=== PATIENT | male | born 1955 | race Caucasian/White ===

== ENCOUNTER → 2016-04-24 | Outpatient (CLI) | payer OTHER ==
[~2016-04-24] MED LIST: ABILIFY10 MG; ADVAIR 250/5028 PUFF IN; ALBUTEROL-200 PUFFS/ IH; ASPIRIN CHILDRE81 M1 PO; BUPROPION HCL100 MG PO; CLARITIN 10MG T10 MG PO; DAILY VITE1 TA2 PO; EFFEXOR XR150 MG PO; FISH OIL CONC1000 MG PO; GLUCOSAMINE500 MG PO; KEFLEX 500MG.500 MG PO; PERCOCET 5/3251 EACH PO; PHARMASSURE RE250 MG PO; RAMIPRIL5 MG PO; VITAMIN C500 M1 PO
--- NOTE | 2016-04-24 13:57 | CARDIOVASCULAR REPORT ---
"Cerebrovascular Exam Indications: 780.4 Dizziness and giddiness. IMPRESSIONS 1. The bilateral vertebral arteries are patent with normal antegrade flow. 2. Study suggests less than 20% stenosis involving the right internal carotid artery and the left internal carotid artery. Carotid duplex study. Complete study and Doppler flow study including spectral analysis, color and bone scale imaging. Height: Height: 185.4cm. Height: 73in. Weight: Weight: 81.6kg. Weight: 179.6lb. Body mass index: BMI: 23.7kg/m^2. Body surface area: BSA: 2.05m^2. Location: Vascular laboratory. Patient status: Outpatient. Tables: Arterial flow: + +--------+--------+ |Location |V sys |V ed | + +--------+--------+ |Right CCA - proximal|110cm/s |28.1cm/s| + +--------+--------+ |Right CCA - distal |97.6cm/s|22.6cm/s| + +--------+--------+ |Right ECA |97.6cm/s|--------| + +--------+--------+ |Right ICA - proximal|76.6cm/s|19.9cm/s| + +--------+--------+ |Right ICA - mid |81.1cm/s|30.3cm/s| + +--------+--------+ |Right ICA - distal |81.6cm/s|34.7cm/s| + +--------+--------+ |Right vertebral |63.4cm/s|--------| + +--------+--------+ |Left CCA - proximal |167cm/s |38.5cm/s| + +--------+--------+ |Left CCA - distal |102cm/s |23.6cm/s| + +--------+--------+ |Left ECA |81.1cm/s|--------| + +--------+--------+ |Left ICA - proximal |89.9cm/s|33.3cm/s| + +--------+--------+ |Left ICA - mid |102cm/s |36.5cm/s| + +--------+--------+ |Left ICA - distal |95.7cm/s|36.4cm/s| + +--------+--------+ |Left vertebral |46.8cm/s|--------| + +--------+--------+ Velocity ratios: + + + + + + | |Right, V sys|Right, V ed|Left, V sys|Left, V ed| + + + + + + |Max ICA/dist CCA|0.84 |1.54 |1 |1.55 | + + + + + + (Report amended ) Electronically signed by: Vishal Dickey [id number]"
== END ==
LOC: RT 13:00
DX: I10 Essential (primary) hypertension (principal); R42 Dizziness and giddiness; H33.21 Serous retinal detachment, right eye; H93.13 Tinnitus, bilateral; H90.0 Conductive hearing loss, bilateral; H54.41 Blindness, right eye, normal vision left eye; G47.10 Hypersomnia, unspecified

== ENCOUNTER → 2016-05-30 | Outpatient (CLI) | payer OTHER ==
[2016-05-30 16:11] LABS: HEMOGLOBIN 15.9 g/dL (14.1-18.0); LYMPH % 35.1 % (10-50)
[2016-05-30 17:46] LABS: BUN 18 mg/dL (7-18); GFR (ESTIMATED) 76 ML/MIN (>60)
[2016-06-01 08:40] LABS: Vitamin B12 575 pg/mL (211-946); Vitamin D, 25-Hydroxy 50.6 ng/mL (30.0-100.0)
[2016-06-02 03:35] LABS: Free Testosterone(Direct) 5.4 pg/mL (6.6-18.1)
[2016-06-04 04:38] LABS: Testosterone, Total, LC/MS 647.5 ng/dL (348.0-1197.0)
== END ==
LOC: LAB 15:55
PROVIDERS: Physician Assistant
DX: R53.83 Other fatigue (principal)

== ENCOUNTER 2017-01-22 23:27 | Emergency (ER) | payer OTHER ==
[~2017-01-22] VITALS: Ht 185.4 cm; Wt 81.6 kg
--- OUTSIDE RECORDS SUMMARY | 2017-01-22 23:37 | External Medical Summary Rpt | CCD ---
Author Author [employer] Organization [employer] Address Unknown Phone Unavailable Purpose Continuity of Care Document - through 2016
--- OUTSIDE RECORDS SUMMARY | 2017-01-22 23:37 | External Medical Summary Rpt ---
Author Author NANCY Mitchell, [employer] Organization [employer] Address Unknown Phone Unavailable
--- OUTSIDE RECORDS SUMMARY | 2017-01-22 23:37 | External Medical Summary Rpt | CCD ---
Author Author HOWIE Address Unknown Phone [email or web address] Purpose Continuity of Care Document - through 2016
--- OUTSIDE RECORDS SUMMARY | 2017-01-22 23:37 | External Medical Summary Rpt | CCD ---
Author Author HOWIE Address Unknown Phone [email or web address] Purpose Continuity of Care Document - through 2016
--- OUTSIDE RECORDS SUMMARY | 2017-01-22 23:37 | External Medical Summary Rpt | CCD ---
Demographics Preferred Language Chadian Marital Status Unknown Pentecostal Affiliation Unknown Race Unknown Ethnic Group Unknown Author Author , HOWIE CRUZ Address Unknown Phone Immunization No patient found.
--- OUTSIDE RECORDS SUMMARY | 2017-01-22 23:37 | External Medical Summary Rpt | CCD ---
Demographics Preferred Language Central African Marital Status Unknown Gnosticist Affiliation Unknown Race Unknown Ethnic Group Unknown Author Author , HOWIE CRUZ Address Unknown Phone Immunization No patient found.
[2017-01-22 23:52] LABS: HEMOGLOBIN 15.1 g/dL (14.1-18.0); LYMPH # 2.8 K/mm3 (0.7-4.5); LYMPH % 41.5 % (10-50)
--- NOTE | 2017-01-23 00:02 | Emergency Room Report ---
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 N Clinical Suspician of Infection? N Mental Status: 1 - Regular (Normal Baseline) Sepsis Risk:Low Sepsis Risk Have you (or family members/close friends) recently traveled outside the [place]? N If Yes, where/when: Have you had exposure to infectious disease within the past month? N TB? Other? 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 at 2229- no chest pain or visual sx and no speech sx - no motor or sensory loss- pt has amnestic response to what happened and current sx Cardiac Chest Pain Chest pain indicative of cardiac No Timing/Duration this evening Severity moderate ALLERGIES Coded Allergies: No Known Allergies (11/27/15) Home Medications Reported Medications Loratadine (Claritin 10MG) 10 MG PO DAILY Ascorbic Acid (Vitamin C) 500 MG PO DAILY FLUTICASONE/SALMETEROL (Advair 250-50 Diskus) 1 PUFF IN BID Ramipril (Ramipril 5MG) 5 MG PO DAILY VENLAFAXINE HCL (Effexor XR 150MG) 150 MG PO DAILY Albuterol (Albuterol-Hfa Inhaler) 1-2 PUFFS IH NEEDED #1 INH Aspirin 81 MG PO DAILY Fish Oil (Fish Oil Concentrate) 1,000 MG PO DAILY Glucosamine Sulfate (Glucosamine) 2 TAB PO DAILY Multivitamin (Daily Naomi) 1 TAB PO DAILY Resveratrol (Pharmassure Resveratrol) 1 TAB PO DAILY History Medical History General CAD? No Angina: No KS: No Hypertension? Yes Hyperlipidemia? No CHF? No DVT? No PE? No COPD? No Asthma? No Anemia? No GERD? No Gastric ulcers? No GI Bleed? No Hernia? No Thyroid Problems? No Hypothyroidism? No CVA? No Seizures? No Diabetes? No Renal Insuffiency? No End Stage Renal Disease? No UTI? No Stones? No BPH? No GB Disease: No Nephritic Syndrome? No Asplenia? No Hepatitis? No Sickle Cell Disease? No Arthritis? No Migraines? No Cataracts? No Glaucoma? No MRSA? No HIV? No TB? No Anxiety? No Depression? No Cancer? Yes Site: SKIN More? No Immunization Hx DT/Tetanus 1-4 YRS Flu THISFLUSEA Pneumonia Received In Past Surgical Hx Previous Surgery?Y L ANKLE L ELBOW LTHUMB JAW NASAL BACK 4 LEVEL LUMBAR SX Family History Family Hx Diabetes No CAD Yes Hypertension Yes Hyperlipidemia Yes Cancer Yes TB No Social History Smoking Hx Smoker: Never Smoker Tobacco: No Alcohol Alcohol: No Drugs none Review of Systems All Other Systems Reviewed and Negative Constitutional denies fever Eyes denies drainage ENT denies: ear discharge, epistaxis, throat pain. Respiratory denies cough, denies shortness of breath, denies wheezing Cardiovascular denies chest pain, denies syncope Gastrointestinal denies abdominal pain, denies diarrhea, denies vomiting Genitourinary denies: dysuria, frequency, hesitancy, hematuria. Musculoskeletal denies back pain, denies joint pain, denies joint swelling, denies neck pain Skin denies rash Psychiatric/Neurological see HPI, denies headache, denies seizure, other Physical Exam Vital Signs Vital Signs Date Time Temp Pulse Resp B/P Pulse O2 O2 Flow FiO2 Ox Delivery Rate 01/22 2330 98.0 103 18 180/77 90 - WBC >12,000 or <4,000 or 10% bands? 2 or more SIRS Criteria Met? B/P:180/77 MAP:111 Creatinine >2.0? UA output<0.5ml/kg/hr for 2 hrs? Platelet count >100,000? Lactate >2.0mmol/1? INR >1.2 or PTT > than 60 sec? Evidence of Organ Dysfunction? Provider documented clinical suspician of infection? N Sepsis Criteria Count: 1 Sepsis Risk: Low Sepsis Risk General Appearance no apparent distress Eye Exam - bilateral eye PERRL, bilateral eye EOMI Ear, Nose, Throat normal ENT inspection Neck supple, no bruit Respiratory Status No: respiratory distress. Lung Sounds bilateral: lungs clear. 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 Yes NIH STROKE SCORE NIH STROKE SCORE Response Value 1a.Level of Consciousness ALERT 0 1b.LOC Questions ANSWERS BOTH CORRECTLY 0 1c.LOC Commands OBEYS BOTH CORRECTLY 0 2 .Best Gaze NORMAL 0 3 .Visual NO VISUAL LOSS 0 4 .Facial Palsy NORMAL 0 5a.Motor Arm Left NO DRIFT 0 5b.Motor Arm Right NO DRIFT 0 6a.Motor Leg Left NO DRIFT 0 6b.Motor Leg Right NO DRIFT 0 7 .Limb Ataxia ABSENT 0 8 .Sensory NORMAL 0 9 .Best Language NO APHASIA 0 10.Dysarthria NORMAL ARTICULATION 0 ED.NIH11 NO NEGLECT 0 Total 0 Medical Decision Making LABS/Meds/Orders Pt receiving controlled substance in ED? No Results/Orders Laboratory Tests 01/22/176: Sodium 137, Potassium 3.7, Chloride 102, Carbon Dioxide 30, BUN 14, Creatinine 1.1, Estimated Creat Clear 80, Estimated GFR (MDRD) 68, Glucose 96, Calcium 9.4, WBC 6.7, RBC 5.08, Hgb 15.1, Hct 45.1, MCV 88.7, RDW 13.0, Plt Count 185, MPV 8.6, Gran % 45.8, Gran # 3.1, Lymphocytes % 41.5, Monocytes % 8.2, Eosinophils % 3.8, Basophils % 0.8, Lymphocytes # 2.8, Monocytes # 0.6, Eosinophils # 0.3, Basophils # 0.1, PUBS MCHC 33.6, MCH 29.8 Current Medication Orders Sig/Kayce Start time Last Medication Dose Route Stop Time Status Admin Sodium Chloride 10 ML PRN PRN 01/22 2330 AC IV 01/23 2329 Orders Procedure Date/time Status DIET-NOTHING BY MOUTH 01/23 B Active ELECTROCARDIOGRAM REQUEST 01/[address] HEAD W/O CONTRAST 01/22 2333 Active FSBS REQUEST BY [facility] 01/[address] HEAD REQ 01/22 2330 Complete IV SALINE LOCK 01/22 2330 Active CBC WITH AUTO DIFF 01/22 2330 Complete BASIC METABOLIC PROFILE 01/22 2330 Complete 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 ST/Twave chgs XRAY/CT/US XRAY/CT/US CT head CT interpretation by discussed w/radiologist Time results known: 12 CT Results normal/NAD Departure Departure Time of Disposition 5 Disposition DC/XFER from ER to [facility] Clinical Impression Primary Impression: TGA (transient global amnesia) Condition STABLE Additional Instructions discussed with dr boland at stroke team Discharge Counseling Counseled pt/family regarding diagnosis, test results ED Critical Care Critical Care Yes Time spent 30-74 min Vital system(s) involved: emily I was present at bedside for Coordinating pt's care, Reviewing lab results, Reviewing old records, Discussing pt condition, Examining radiographs If Critical Care minutes are documented, the time involved in the performance of seperately reportable procedures was not counted toward critical care time documented. I directly delivered medical care to this critically ill and/or injured patient. Timely evaluation and treatment was necessary to address the significant organ system(s) dysfunction present in this patient. at 0015
[2017-01-23 00:32] VITALS: BP 150/87
--- NOTE | 2017-01-23 06:13 | RADIOLOGY REPORT PS360 ---
CT HEAD W/O CONTRAST HISTORY: Altered mental status, memory loss, confusion, altered level of consciousness NEW ONSET OF CONFUSION ORDERING PHYSICIAN: Glenroy Hull MD PATIENT AGE: 61 years COMPARISON: MRI of 04/29/2016 TECHNIQUE: Axial images obtained without contrast. Brain and bone windows reviewed. FINDINGS: No midline shift, mass effect, intracranial hemorrhage, hydrocephalus, or extra-axial fluid collection is evident. There is mild atrophy with mild chronic microvascular intrahepatic changes The calvarium has an unremarkable appearance. 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 The visualized paranasal sinuses are unremarkable. IMPRESSION: No change with no acute intracranial findings..
== END 2017-01-23 00:38 | disposition short-term general hospital (02) ==
LOC: ER 23:27
PROVIDERS: Emergency Medicine
DX: G45.4 Transient global amnesia (principal); I10 Essential (primary) hypertension; Z79.82 Long term (current) use of aspirin

== ENCOUNTER → 2017-02-07 | Outpatient (CLI) | payer OTHER ==
[2017-02-07 10:03] LABS: BUN 16 mg/dL (7-18)
[2017-02-07 10:04] LABS: GFR (ESTIMATED) 68 ML/MIN (>60)
[2017-02-11 11:00] LABS: Testosterone, Total, LC/MS 737.1 ng/dL (264.0-916.0)
== END ==
LOC: LAB 07:47
PROVIDERS: Internal Medicine Adolescent Medicine
DX: E03.9 Hypothyroidism, unspecified (principal); R53.82 Chronic fatigue, unspecified; G47.419 Narcolepsy without cataplexy

== ENCOUNTER → 2017-02-17 | Outpatient (CLI) | payer OTHER ==
[2017-02-17 18:15] LABS: BUN 23 mg/dL (7-18)
[2017-02-17 18:17] LABS: GFR (ESTIMATED) 61 ML/MIN (>60)
== END ==
LOC: LAB 16:36
PROVIDERS: Internal Medicine Adolescent Medicine
DX: R40.20 Unspecified coma (principal)

== ENCOUNTER → 2017-02-21 | Outpatient (CLI) | payer OTHER ==
--- NOTE | 2017-02-22 06:14 | RADIOLOGY REPORT PS360 ---
MRI-BRAIN W/WO HISTORY: Loss of consciousness, TIA, memory loss LOSS OF CONSCIOUSNESS ORDERING PHYSICIAN: Kennedy Montoya MD PATIENT AGE: 61 years COMPARISON: CT scan of 01/22/2017 and MRI May 03, 2016 TECHNIQUE: Standard multiplanar multiecho sequences are performed without and with contrast. FINDINGS: No midline shift, mass effect, intracranial hemorrhage, or hydrocephalus is evident. No evidence of acute infarction. No abnormal restricted diffusion. No enhancing lesions. No intra or extra-axial mass or hemorrhage. No large aneurysms. MRI may be of further value for detection of small aneurysms. There are a few scattered periventricular and subcortical T2 white matter hyperintensities as before not significantly changed probably related to incidental microvascular angiopathic changes. The cerebellopontine angles, cerebellum, and brainstem are unremarkable. The hippocampal gyri are unremarkable in the temporal horns are symmetric. The pituitary, optic chiasm, and corpus callosum have an unremarkable appearance. No cerebellar tonsillar ectopia. The upper cervical cord is unremarkable. There is degenerative disc disease noted on the edge of the image at C3-C4 with some bulging of the and minimal anterolisthesis of C3 incompletely evaluated on this study. No mastoid effusion or sinus air-fluid level. 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 No acute intracranial findings with no significant change. 2. Overall no significant change in the minimal T2 white matter hyperintensities likely due to ischemic gliotic foci from microvascular disease. 3. No acute infarction or enhancing lesions evident.
== END ==
LOC: RAD 02-18 12:00
DX: R40.20 Unspecified coma (principal)
CPT/HCPCS: A9576